=== PATIENT | male | born 1955 | race Two or more races ===

== ENCOUNTER 2024-03-31 19:50 | Inpatient (IN) | payer MEDICARE, OTHER ==
[~2024-03-31] VITALS: Ht 162.6 cm; Wt 59.0 kg
[2024-03-31] MEDS ORDERED: DOCU250C14 PO (20:07)
[2024-03-31] MEDS ORDERED: ARIP15TA3 PO (20:07)
[2024-03-31] MEDS ORDERED: GLUC1KIT IM (20:07)
[2024-03-31 20:44] LABS: BASOPHILS % (AUTO) 0.8 % (0.0-2.0); DIFFERENTIAL COMMENT 1; EOSINOPHILS # (AUTO) 0.2 K/uL (0.0-0.7); EOSINOPHILS % (AUTO) 3.5 % (0.0-7.0); HEMATOCRIT 37.3 % (36.7-47.1); HEMOGLOBIN 12.2 g/dL (12.5-16.3); LYMPHOCYTES # (AUTO) 1.7 K/uL (0.8-4.8); LYMPHOCYTES % (AUTO) 30.6 % (20.5-51.5); MEAN CORPUSCULAR HEMOGLOBIN 28.6 uug (23.8-33.4); MEAN CORPUSCULAR HGB CONC 33 g/dL (32.5-36.3); MEAN CORPUSCULAR VOLUME 87.4 fL (73.0-96.2); MONOCYTES # (AUTO) 0.6 K/uL (0.1-1.30); MONOCYTES % (AUTO) 10.4 % (0.0-11.0); NEUTROPHILS % (AUTO) 54.7 % (38.5-71.5); PLATELET COUNT (AUTO) 206 K/uL (152-348); RED BLOOD CELL COUNT(AUTO) 4.27 MIL/uL (4.06-5.63); RED CELL DISTRIBUTION WIDTH 15.2 % (12.1-16.2); WHITE BLOOD COUNT (AUTO) 5.5 K/uL (3.6-10.2)
[2024-03-31 20:53] LABS: CALCIUM 8.7 mg/dL (8.5-10.1); CARBON DIOXIDE 26 mmol/L (21-32); CHLORIDE 109 mmol/L (98-107); CREATININE 0.8 mg/dL (0.6-1.3); GLUCOSE 107 mg/dL (74-106); POTASSIUM 3.9 mmol/L (3.5-5.1); SODIUM SERUM 143 mmol/L (136-145); UREA NITROGEN, BLOOD 18 mg/dL (7-18)
[2024-03-31 21:07] LABS: ALANINE AMINOTRANSFERASE 19 U/L (16-63); ALBUMIN 3.1 g/dL (3.4-5.0); ALKALINE PHOSPHATASE 143 U/L (50-136); ASPARTATE AMINOTRANSFERASE 10 U/L (15-37); BILIRUBIN,DIRECT 0.1 mg/dL (0.0-0.2); BILIRUBIN,TOTAL 0.3 mg/dL (0.2-1.0); TOTAL PROTEIN, SERUM 7.5 g/dL (6.4-8.2)
[2024-03-31 21:26] LABS: ETHANOL < 3 MG/DL (0-10)
[2024-03-31 23:03] LABS: *BILIRUBIN,URIN NEGATIVE (NEGATIVE); *BLOOD, URINE NEGATIVE (NEGATIVE); *CLARITY,URINE CLEAR (CLEAR); *COLOR,URINE YELLOW (YELLOW); *KETONES,URINE NEGATIVE (NEGATIVE); *PROTEIN,URINE NEGATIVE (NEGATIVE); LEUKOCYTE ESTERASE ,URINE NEGATIVE (NEGATIVE); NITRITE, URINE NEGATIVE (NEGATIVE); UGLUCOSE NEGATIVE (NEGATIVE)
[2024-03-31 23:16] LABS: *AMPHETAMINE, URINE NEGATIVE (NEGATIVE); *BARBITURATE, URINE NEGATIVE (NEGATIVE); *BENZODIAZEPINE, URINE NEGATIVE (NEGATIVE); *CANNABINOID, URINE NEGATIVE (NEGATIVE); *COCCAINE, URINE NEGATIVE (NEGATIVE); *OPIATE, URINE NEGATIVE (NEGATIVE); *PHENCYCLIDINE SCREEN,URINE NEGATIVE (NEGATIVE); FENTANYL, URINE NEGATIVE (NEGATIVE)
[2024-03-31 23:49] LABS: BACTERIA,URINE RARE /HPF (NONE SEEN); RBC,URINE 0-3 /HPF (0-3); SQUAMOUS EPITHELIAL CELL,UR FEW /HPF (NONE SEEN); WBC,URINE 0-3 /HPF (0-3)
[2024-04-01] MEDS ORDERED: MAG HYDROX/AL HYDROX/SIMETH 30 ML LIQUID UDC PO PRN (04:30)
[2024-04-01] MEDS ORDERED: TEMAZEPAM 7.5 MG CAPSULE PO PRN (04:30)
[2024-04-01] MEDS ORDERED: MAGNESIUM HYDROXIDE 30 ML LIQUID UDC PO PRN (04:30)
[2024-04-01] MEDS ORDERED: ACETAMINOPHEN 325 MG TABLET PO PRN (04:30)
[2024-04-01 04:35] VITALS: BP 115/64; TEMP 97.8; O2SAT 100
[2024-04-01] MEDS: BLOOD SUGAR DIAGNOSTIC 1 EACH STRIP VI ONE (05:03)
[2024-04-01 08:18] VITALS: BP 97/61; TEMP 98; O2SAT 98
[2024-04-01] MEDS ORDERED: DOCUSATE SODIUM 250 MG CAPSULE PO PRN (11:15)
[2024-04-01] MEDS: ARIPIPRAZOLE 5 MG TABLET PO SCH (11:38)
[2024-04-01 16:16] VITALS: BP 116/65; TEMP 98; O2SAT 98
[2024-04-01] MEDS: ARIPIPRAZOLE 10 MG TABLET PO SCH (20:19)
[2024-04-01] MEDS: LORAZEPAM 1 MG TABLET PO PRN (20:19)
[2024-04-01 20:50] VITALS: BP 120/68; TEMP 97.8; O2SAT 99
[2024-04-02 08:09] VITALS: BP 98/56; TEMP 97.8; O2SAT 98
[2024-04-02 16:25] VITALS: BP 99/55; TEMP 97.9; O2SAT 98
[2024-04-02] MEDS: GUAIFENESIN/DEXTROMETHORPHAN 5 ML UDC PO PRN (18:55)
[2024-04-03 09:29] VITALS: BP 93/54; TEMP 98.4; O2SAT 98
[2024-04-03 16:31] VITALS: BP 117/70; TEMP 98.3; O2SAT 98
[2024-04-03 19:52] VITALS: BP 123/61; TEMP 98.3; O2SAT 95
[2024-04-04 08:00] VITALS: BP 103/62; TEMP 98.1; O2SAT 97
[2024-04-04 16:32] VITALS: BP 103/58; TEMP 97.8; O2SAT 98
[2024-04-04 20:02] VITALS: BP 101/60; TEMP 97.9; O2SAT 96
[2024-04-05 08:00] VITALS: BP 105/55; TEMP 98.6; O2SAT 98
[2024-04-05] MEDS: ARIPIPRAZOLE 10 MG TABLET PO ONE (10:47)
[2024-04-05 16:07] VITALS: BP 119/69; TEMP 97.9; O2SAT 98
[2024-04-05 20:00] VITALS: BP 97/60; TEMP 98.2; O2SAT 97
[2024-04-06 07:47] VITALS: BP 105/53; TEMP 97.6; O2SAT 98
[2024-04-06] MEDS: ARIPIPRAZOLE 10 MG TABLET PO SCH (09:10)
[2024-04-06 15:55] VITALS: BP 93/59; TEMP 98.7; O2SAT 97
[2024-04-06 20:00] VITALS: BP 98/54; TEMP 98.3; O2SAT 96
[2024-04-07 07:50] VITALS: BP 115/67; TEMP 97.6; O2SAT 98
[2024-04-07 16:07] VITALS: BP 130/48; TEMP 97.6; O2SAT 100
[2024-04-07 20:00] VITALS: BP 100/53; TEMP 98.4; O2SAT 96
[2024-04-08 08:21] VITALS: BP 102/48; TEMP 97.8; O2SAT 99
[2024-04-08 16:03] VITALS: BP 109/60; TEMP 97.9; O2SAT 98
[2024-04-08 20:00] VITALS: BP 103/51; TEMP 98.2; O2SAT 95
[2024-04-09 08:35] VITALS: BP 98/54; TEMP 98.3; O2SAT 97
[2024-04-09 16:22] VITALS: BP 98/55; TEMP 98.1; O2SAT 97
[2024-04-09 19:51] VITALS: BP 100/54; TEMP 98.1; O2SAT 98
[2024-04-10 07:52] VITALS: BP 112/58; TEMP 98.3; O2SAT 98
[2024-04-10] MEDS: ARIPIPRAZOLE 5 MG TABLET PO ONE (12:19)
[2024-04-10 16:00] VITALS: BP 112/60; TEMP 98.1; O2SAT 98
[2024-04-10 20:00] VITALS: BP 97/60; TEMP 98; O2SAT 97
[2024-04-11] MEDS: ARIPIPRAZOLE 10 MG TABLET PO SCH (08:24)
[2024-04-11] MEDS: MULTIVITAMINS,THERAPEUTIC TABLET PO SCH (08:24)
[2024-04-11 09:31] VITALS: BP 118/66; TEMP 98; O2SAT 99
[2024-04-11 15:06] VITALS: BP 102/60; TEMP 98; O2SAT 99
[2024-04-11 20:00] VITALS: BP 98/59; TEMP 97.7; O2SAT 98
[2024-04-12 07:54] VITALS: BP 110/52; TEMP 98.2; O2SAT 98
[2024-04-12 15:43] VITALS: BP 136/81; TEMP 98.2; O2SAT 99
[2024-04-12 20:00] VITALS: BP 103/58; TEMP 98.3; O2SAT 100
[2024-04-13 07:56] VITALS: BP 105/52; TEMP 98.2; O2SAT 99
[2024-04-13 15:05] VITALS: BP 100/57; TEMP 98.2; O2SAT 98
[2024-04-13 19:44] VITALS: BP 102/53; TEMP 98.3; O2SAT 97
[2024-04-14 07:45] VITALS: BP 108/50; TEMP 98.2; O2SAT 99
== END 2024-04-14 11:30 | DRG 885 ==
LOC: ER 19:57 → GPS 04-01 03:21
PROVIDERS: ADMIT Psychiatry & Neurology Psychosomatic Medicine; ATTEND Internal Medicine
DX: F20.9 Schizophrenia, unspecified (principal); E44.1 Mild protein-calorie malnutrition; E88.09 Other disorders of plasma-protein metabolism, not elsewhere classified; F10.10 Alcohol abuse, uncomplicated; Y90.0 Blood alcohol level of less than 20 mg/100 ml; R00.1 Bradycardia, unspecified; Z79.899 Other long term (current) drug therapy; N40.0 Benign prostatic hyperplasia without lower urinary tract symptoms; L72.3 Sebaceous cyst; Z91.148 Patient's other noncompliance with medication regimen for other reason; G62.9 Polyneuropathy, unspecified; E78.5 Hyperlipidemia, unspecified; F19.10 Other psychoactive substance abuse, uncomplicated
CPT/HCPCS: 36415; 85025; 93005; A4606; A4663; G0480